=== PATIENT | male | born 2005 | race Two or more races ===

== ENCOUNTER 2023-12-06 01:36 | Emergency (ER) | payer OTHER ==
[~2023-12-06] VITALS: Ht 152.4 cm; Wt 68.0 kg
[2023-12-06] MEDS ORDERED: NALOXONE HCL 0.4 MG/ML AMPUL IV STA (02:00)
[2023-12-06] MEDS ORDERED: FLUMAZENIL 0.5 MG/5ML ML IV STA (02:00)
[2023-12-06 02:26] LABS: HEMATOCRIT 36.7 % (39.0-48.0); HEMOGLOBIN 12.9 g/dL (13-16.00); MEAN CELL VOLUME 87.4 fL (80.0-100.00); MEAN CORPUSCULAR HEMOGLOBIN 30.7 pg (27.00-32.0); MEAN CORPUSCULAR HGB CONC 35.1 g/dl (32.0-36.0); PLATELET COUNT 309 K/uL (150-450)
[2023-12-06 02:52] LABS: BILIRUBIN TOTAL 0.48 mg/dL (0.3-1.2); CALCIUM 8.2 mg/dL (8.5-10.1); CREATININE SERUM 0.91 mg/dL (0.70-1.30); GFR 106.22; GLOBULINA 3.1 G/DL (2.4-3.5); POTASSIUM 3.26 mEq/L (3.5-5.1); TOTAL PROTEIN 7.1 gm/dL (6.4-8.2)
== END 2023-12-06 07:55 | disposition home or self-care (01) ==
LOC: ER 01:36
DX: F19.10 Other psychoactive substance abuse, uncomplicated (principal)